=== PATIENT | female | born 1985 | race Caucasian/White ===

== ENCOUNTER 2022-08-24 08:02 | Outpatient (CLI) | payer OTHER, SELFPAY ==
--- NOTE | 2022-08-24 08:08 | US_ITS ---
STUDY: ULTRASOUND OF THE FEMALE PELVIS - COMPLETE REASON FOR EXAM: Female, 36 years old. PROLAPSE, -- AUB LMP: 08/16/2022. TECHNIQUE: Transabdominal and Transvaginal TECHNICAL QUALITY: Adequate. COMPARISON: None. FINDINGS: The uterus is retroverted and is in a midline position. The uterus measures 9 cm x 5.5 cm x 4.5 cm. There is a Nabothian cyst of the cervix. The endometrium measures 2.3 mm in thickness, and is hyperechoic. I suspect an 8 mm x 15 mm x 4 mm endometrial polyp. There is a 1.2 cm by 1.2 cm x 1.1 cm fibroid arising from the right side of the body of the uterus. I.U.D. - The patient does not have an I.U.D. The right ovary is visualized. The right ovary measures 3.4 cm x 2.2 cm x 2.1 cm. There is no right ovarian cyst or ovarian mass. There is no visualized right adnexal mass or complex lesion. There is normal arterial and normal venous vascularity. The left ovary is visualized. The left ovary measures 3 cm x 1.9 cm x 1.6 cm. There is no left ovarian cyst or ovarian mass. There is no visualized left adnexal mass or complex lesion. There is normal arterial and normal venous vascularity. There is no fluid in the cul-de-sac. The pre void volume of the bladder was 37 ml. US/Pelvic (Non ) IMPRESSION: Small uterine fibroid. Findings suggestive of a 1.5 cm x 0.8 cm x 0.4 cm endometrial polyp. Electronically Signed: Daniel Yanes MD at 14:54 EST ,
== END 2022-08-24 23:59 | disposition home or self-care (01) ==
PROVIDERS: PCP Family Medicine; Referring Provider Obstetrics & Gynecology; Visit Provider Obstetrics & Gynecology
DX: N93.9 Abnormal uterine and vaginal bleeding, unspecified (principal); N81.2 Incomplete uterovaginal prolapse; D21.9 Benign neoplasm of connective and other soft tissue, unspecified
CPT/HCPCS: 76830; 76856

== ENCOUNTER 2023-02-16 11:14 | Outpatient (CLI) | payer OTHER, SELFPAY ==
[2023-02-16 11:37] VITALS: BP 151/84; PULSE 91; RESP 16; TEMP 35.9; O2SAT 99; BMI 43.7
[2023-02-16] MEDS: 0.9% NaCl IVPB Med Flush (250 mL) 15 ML IV (11:45)
[2023-02-16] MEDS: 0.9% NaCl Peripheral Flush Adult/Peds IV (11:45)
[2023-02-16 13:35] VITALS: BP 132/70; PULSE 82; RESP 16
== END 2023-02-16 11:15 | disposition home or self-care (01) ==
PROVIDERS: PCP Family Medicine; Referring Provider Obstetrics & Gynecology; Visit Provider Obstetrics & Gynecology
DX: D64.9 Anemia, unspecified (principal)
CPT/HCPCS: 96365; 96366; J1756; J7050; A4216

== ENCOUNTER 2023-02-22 12:46 | Outpatient (CLI) | payer OTHER, SELFPAY ==
[2023-02-22 13:13] VITALS: BP 124/81; PULSE 84; RESP 19; TEMP 36.5; O2SAT 99; BMI 43.4
[2023-02-22] MEDS: 0.9% NaCl IVPB Med Flush (250 mL) 15 ML IV (13:28)
[2023-02-22] MEDS: 0.9% NaCl Peripheral Flush Adult/Peds IV (13:33)
[2023-02-22 15:26] VITALS: BP 134/69; PULSE 76; RESP 16; TEMP 36.8; O2SAT 100
== END 2023-02-22 12:47 | disposition home or self-care (01) ==
LOC: MEDOUTP 12:46
PROVIDERS: PCP Family Medicine; Referring Provider Obstetrics & Gynecology; Visit Provider Obstetrics & Gynecology
DX: D64.9 Anemia, unspecified (principal)
CPT/HCPCS: 96365; 96366; J1756; J7050; A4216

== ENCOUNTER 2023-03-05 13:27 | Outpatient (CLI) | payer OTHER, SELFPAY ==
[2023-03-05 13:36] VITALS: BP 143/77; PULSE 78; RESP 16; TEMP 35.7; O2SAT 98; BMI 43.4
[2023-03-05] MEDS: 0.9% NaCl IVPB Med Flush (250 mL) 15 ML IV (13:48)
[2023-03-05] MEDS: 0.9% NaCl Peripheral Flush Adult/Peds IV (13:48)
[2023-03-05 15:44] VITALS: BP 127/58; PULSE 73; RESP 16; TEMP 36.5; O2SAT 100
== END 2023-03-05 13:28 | disposition home or self-care (01) ==
LOC: MEDOUTP 13:28
PROVIDERS: PCP Family Medicine; Referring Provider Obstetrics & Gynecology; Visit Provider Obstetrics & Gynecology
DX: D64.9 Anemia, unspecified (principal)
CPT/HCPCS: 96365; 96366; J1756; J7050; A4216

== ENCOUNTER → 2023-05-11 | Outpatient (CLI) | payer OTHER, SELFPAY ==
--- NOTE | 2023-05-11 15:30 | EMB_PTH ---
PATIENT: JESS UMANA LOC: [facility] U#:[id number] AGE/SX: 37/F ROOM: RE05/11/[address]: Dr. Rosa Hightower MD : 1985 BED: DIS: 05/11/2023 SPEC #: [id number] RECD: 05/11/23 17:18 STATUS: CINDY HUDSON #: [id number] YENNY: 05/11/23 15:[address]: Rosa Hightower DEPT: SURGICAL PATHOLOGY RECD BY: Rula Quintana ENTERED: 05/14/23 07:49 SP TYPE: ENDOM BX/C YUDI DR: Dr. Giovanni Lundberg MD Tissues: Endometrium, NOS Procedures: Surgery Specimen Level IV HEADER OPERATION: Endometrial biopsy PRE-OP DIAGNOSIS: Abnormal uterine bleeding TISSUE SUBMITTED: Endometrial lining MICROSCOPIC DIAGNOSIS Endometrium, biopsy: Weakly proliferative endometrium with minimal disorder. Rare fragment of benign endocervix. AM:tricia 05/15/2023 MICROSCOPIC DESCRIPTION Slides are reviewed. GROSS DESCRIPTION Received is one container labeled with the patient's name and not further designated. The specimen consists of multiple irregular fragments of light estrada soft tissue that in aggregate measure 0.6 x 0.2 x 0.1 cm. The specimen is totally submitted in one cassette. / AM:tricia 05/14/2023 TC:5 CPT: 07301
== END | disposition home or self-care (01) ==
LOC: LABSPEC 05-14 07:35
PROVIDERS: PCP Family Medicine; Visit Provider Obstetrics & Gynecology
DX: N93.9 Abnormal uterine and vaginal bleeding, unspecified (principal)
CPT/HCPCS: 88305

== ENCOUNTER 2023-05-18 07:45 | Observation (INO) | payer OTHER, SELFPAY ==
[2023-05-11 13:39] LABS: Absolute Lymphocyte Count 4.24 X10^3/uL (0.83-4.51); Absolute Neutrophil Count 6.4 X10^3/uL (2.0-7.7); Basophil# 0.16 X10^3/uL; Basophil% 1.3 % (0-1); Eosinophil# 0.23 X10^3/uL; Eosinophils% 1.9 % (0-5); Hematocrit 37.4 % (37-47); Hemoglobin 11.8 g/dL (12.0-15.0); Lymphocyte # 4.24 X10^3/ul (0.83-4.51); Lymphocyte % 35.7 % (19-41); Mean Corp Hgb Conc 31.6 g/dL (32-36); Mean Corpuscular Hgb 25.3 pg (27.0-32.0); Mean Corpuscular Volume 80.3 fL (81-99); Mean Platelet Vol. 10.2 fl (6.2-12.0); Monocyte# 0.83 X10^3/uL; NRBC Flagged by Analyzer 0 % (0-5); Neutrophil # 6.39 X10^3/uL (2.7-7.7); Neutrophil % 53.8 % (47-70); POSITIVE MORPHOLOGY YES; Platelet Count 506 K/mm3 (150-450); RBC Distribution Width SD 55.2 fl (35.1-43.9); Red Blood Count 4.66 M/mm3 (4.2-5.4); White Blood Count 11.9 K/mm3 (4.4-11.0)
[2023-05-11 13:41] LABS: Differential Indicated SCAN CRITERIA MET
[2023-05-11 14:04] LABS: Magnesium 2.2 mg/dL (1.6-2.6)
[2023-05-11 14:15] LABS: Differential Comment SCANNED; Reactive Lymphocyte 1+
[2023-05-18] VITALS (15 sets, daily range): BP systolic 103–146; BP diastolic 63–93; PULSE 83–103; RESP 10–18; TEMP 36.5–37.2; O2SAT 88–100; BMI 42.7
[2023-05-18 06:04] LABS: Internal QC Validated? YES +Cl - CLEAR BKGD; Pregnancy, Urine Negative Negative
[2023-05-18] MEDS: Lactated Ringers 1,000 ML 40 ML IV (06:10)
[2023-05-18] MEDS: dexAMETHasone 4 MG/ML Vial 8 MG IV (06:11)
[2023-05-18] MEDS: Magnesium 1 GM over 15 mins IV (06:11)
--- NOTE | 2023-05-18 06:23 | PCM.HP.BLA ---
History and Physical Date of Admission: 05/18/23 [facility] Department [address] [place] [address] OFFICE VISIT Date of Service: 05/11/23 MR#: [id number] Acct: [id number] Name: JESS UMANA Rep #: [id number] : 1985 Provider: Dr. Rosa Hightower MD Age/Sex: 37/F [place] [facility] [place]: Signed Intake Vital Signs 08/10/2210:55 03/05/2313:36 05/11/2314:44 Height 5 ft 5 in 5 ft 4 in 5 ft 4 in Weight: 253 lb BMI 43.4 BP 133/87 H Blood Pressure Location Lt brachial Position Sitting Intake Visit Reasons: wyneski combo TVHBS Chief Complaint: Preop Cigar Brander Required: No Accompanied by: Self Is patient in pain?: No Allergies grape flavor Allergy (Verified 05/11/23 14:49) Hives Medications citalopram 20 mg tablet 40 mg PO DAILY 09/14/19 [History Confirmed 05/11/23] omeprazole 40 mg capsule,delayed release 40 mg PO DAILY 09/14/19 [History Confirmed 05/11/23] acetaminophen 325 mg tablet (Aphen) 650 mg PO Q4H PRN pain 05/04/23 [History Confirmed 05/11/23] ibuprofen 200 mg tablet (Advil) 400 mg PO Q8H 05/04/23 [History Confirmed 05/11/23] medroxyprogesterone 10 mg tablet 10 mg PO DAILY 05/04/23 [History Confirmed 05/11/23] nystatin 100,000 unit/gram topical powder (Nystop) 1 applic topical BID #45 ea 05/11/23 [Rx Confirmed 05/11/23] [facility] Medical History (Updated 05/13/23 @ 19:[address] Rosa Hightower MD) Alcohol use Anemia Antibiotic-induced yeast infection Anxiety Anxiety and depression Blood clot in vein Cardiology follow-up encounter Contact with and (suspected) exposure to other viral communicable diseases Cystocele Depression Dietary restriction Gastric reflux Heart palpitations History of echocardiogram History of edema History of hiatal hernia History of IBS History of stress test Menorrhagia Migraine headache Non-smoker Severe headache Shortness of breath on exertion Wears glasses Surgical History H/O splenectomy History of tonsillectomy Hx of appendectomy Family History Grandmother Breast cancer Bladder cancer Brain cancer Thyroid cancerOther Cancer Hypertension Lung cancer Social History Smoking Status: Never smoker alcohol intake: current details: social substance use type: does not use seatbelt use: always do you feel safe at home: Yes 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 she has a 9 cm uterus. Female Reproductive History Menopausal Symptoms: No hot flashes, No night sweats, No difficulty concentrating and No change in libido History 2 Elective abortions Hx Para 2 Spontaneous abortions Hx # Term Pregnancies Ectopic pregnancies Hx # Pregnancies Multiple births # of living children Past Pregnancies Del. Date Name GA/Weeks Outcome Route Bth Weight Infant Gen Labor Lgth Anesthesia Del Locatn Provider FOB Unknown 2011 Kathie 20 still Unknown 2012 Mann 38 live - full term Delivery Date: Last Updated by: Lisa Dickinson stillbirth at 20w3d, cervical insufficency ROS Const Constitutional: Denies fatigue, night sweats, weight gain or weight loss ENT ENT: Reports system reviewed and no additional complaints, except as documented Cardio Card: Denies chest pain Resp Resp: Denies cough or dyspnea GI GI: Reports as per HPI; Denies constipation, nausea or vomiting : Reports as per HPI; Denies hot flashes, nipple discharge, vaginal discharge, vaginal dryness, vaginal odor or vaginal pruritus Musc Musc: Reports arthralgias; Denies back pain or muscle weakness Skin Skin/Breast: Reports breast pain and breast skin changes; Denies alopecia, change in hair, dry skin, breast mass or nipple discharge Neuro Neuro: Reports system reviewed and no additional complaints, except as documented Psych Psych: Reports system reviewed and no additional complaints, except as documented; Denies change in libido or difficulty concentrating Endo Endo: Denies cold intolerance, excessive sweating, heat intolerance or polydipsia Erick/Lymph Hematologic/Lymphatic: Denies easy bleeding, Denies easy bruising and Denies lymphadenopathy Exam Const General: cooperative, healthy appearing, comfortable, no acute distress and well developed Orientation: alert [facility] Head: normal to inspection and normocephalic Ears: hearing grossly normal bilaterally and external ears normal Nose: external nose normal and nares normal Face and sinus: normal facial exam Neck Neck: normal visual inspection and no lymphadenopathy Thyroid: thyroid normal Chest Chest palpation & inspection: normal inspection of the chest Resp Effort & Inspection: normal respiratory effort Auscultation: clear to auscultation bilaterally Cardio Rate: regular rate Rhythm: regular rhythm Heart Sounds: S1 normal and S2 normal GI Inspection: normal to inspection and non-distended Palpation: soft and no hepatosplenomegaly General: bladder normal to palpation External Female Exam: normal external appearance and normal appearance of the urethra Urethra: normal appearance of the urethra, normal palpation and no discharge Speculum Exam - Vagina: normal appearance of the vagina and normal vaginal discharge Speculum Exam - Cervix: normal appearance of the cervix and nontender Bimanual Exam- Vagina & Uterus: normal bimanual exam, uterine size normal, bladder normal to palpation, uterine shape normal, No tender, uterine mobility normal, consistency normal, normal palpation and non-tender Bimanual Exam- Adnexa, other: normal adnexae, adnexae mobile, no masses, rectocele, cystocele and vaginal apex descent (grade II-III cervical descent) Pelvic Support: cystocele mild (grade II), rectocele mild (grade II) and vaginal apex descent (grade II-III cervical descent) Musc Other: gross motor intact no deficits, full bilateral strength Skin General: no rashes or lesions noted Neuro General: patient alert, patient awake, moves all extremities and no focal motor deficits Motor: muscle tone normal throughout Extrem General: normal to inspection and no pedal edema Psych Appearance: grossly normal Mental Status: mental status grossly normal Affect: normal affect Speech and Movement: speech and movement normal Office Procedures Endometrial Biopsy Endometrial Biopsy Test: Yes Negative Consent Signed: Yes Time out checklist: patient, procedure, site marked/identified, positioning of patient, supplies available, allergies confirmed and team agrees on procedure tenaculum used: No dilator used: No Details: Cervix prepped with betadine and pipelle inserted into uterus without complication. Specimen obtained and sent to lab for analysis. All instruments removed from vagina without complications. Excellent hemostasis noted. Coding Level of Care Code No Charge Diagnoses Blood clot in vein I82.90 Abnormal uterine bleeding N93.9 Incomplete uterovaginal prolapse N81.2 CPT Codes Endometrial Biopsy (02882) Assessment and Plan Assessment and Plan (1) Blood clot in vein: Status: Acute Comment: will give 1 week postop lovenox. superficial- left arm- blood transfusion in 2016 unresolved blood clot. 2021 blood clot in same arm, changed to progesterone only OCP (2) Abnormal uterine bleeding: Status: Acute Comment: limited options due to comorbidities, failed progestin. plan TVHBS possible laparoscopic. (3) Incomplete uterovaginal prolapse: Status: Acute Comment: urogyn combo case Orders: Orders Endometrial Biopsy 05/11/23 N93.9 - Abnormal uterine and vaginal bleeding, unspecified Medications: New nystatin (Nystop) 1 applic topical BID 45 ea 7RF Plan After discussing the patient's diagnosis and treatment plan options, patient wishes to proceed with surgical management. I have discussed with the patient the risks, benefits, and alternatives of the procedure which include but are not limited to risks of anesthesia, bleeding, infection, possible damage to bowel, bladder, or surrounding vasculature which could lead to additional surgery to evaluate any complications. Patient agrees to procedure and wishes to proceed. ACOG/uptodate references given for additional information regarding procedure. UPDATE- I have seen the patient and performed any clinically relevant updates to the history and physical exam. Rosa Hightower MD
[2023-05-18] MEDS: Gabapentin 600 MG Tablet PO (06:38)
[2023-05-18] MEDS: Celecoxib 200 MG Capsule 400 MG PO (06:39)
[2023-05-18] MEDS: Acetaminophen 500 MG Tablet 1000 MG PO ×3 (06:39→20:49)
[2023-05-18] MEDS: Enoxaparin 40 MG/0.4 ML Syringe SC (06:40)
[2023-05-18] MEDS: Scopolamine 1mg/72hr Patch 1 PATCH TD (06:40)
[2023-05-18 07:05] LABS: Bedside Glucose 82 mg/dL (74-106)
--- NOTE | 2023-05-18 07:30 | HYST_PTH ---
PATIENT: JESS UMANA LOC: [facility] U#:[id number] AGE/SX: 37/F ROOM: WI316 RE05/18/[address]: Dr. Rosa Hightower MD : 1985 BED: 1 DIS: 05/19/2023 SPEC #: [id number] RECD: 05/18/23 11:54 STATUS: CINDY HUDSON #: [id number] YENNY: 05/18/23 07:[address]: Rosa Hightower DEPT: SURGICAL PATHOLOGY RECD BY: Rula Quintana ENTERED: 05/18/23 13:05 SP TYPE: HYSTERECT OTHR DR: MD Dr. Karina Hennessy MD Tissues: Uterus, NOS Procedures: Surgery Specimen Level V HEADER OPERATION: ERAS, total vaginal hysterectomy PRE-OP DIAGNOSIS: Incomplete uterovaginal prolapse, mixed incontinence, nocturia, overactive bladder TISSUE SUBMITTED: Uterus and cervix MICROSCOPIC DIAGNOSIS Uterus and cervix, vaginal hysterectomy: Cervix - chronic cystic cervicitis and squamous metaplasia. Endometrium - inactive to weakly proliferative endometrium. Myometrium - two subserosal leiomyomas (each measuring 0.2 cm in greatest dimension). PEÑA:tricia 05/21/2023 MICROSCOPIC DESCRIPTION Slides are reviewed. GROSS DESCRIPTION Received in fixative is one container labeled with the patient's name and designated uterus and cervix. The specimen consists of a hysterectomy specimen consisting of uterus with cervix weighing 109 gm and measuring 11.0 x 6.0 x 5.0 cm. The serosal surface is estrada, glistening. The external os is oval and patulous in contour. The external os is covered with mucoid material. The ectocervical mucosa is unremarkable. The endocervical canal measures 4.0 cm in length and the endocervical mucosa is unremarkable. The triangular endometrial cavity measures 5.0 cm in length and up to 2.5 cm in width and is estrada, glistening without any mass lesion and measures 0.2 cm in thickness. Sectioning of the uterine wall reveal two subserosal nodules each measuring 0.2 cm in greatest dimension. The uterine wall measures up to 2.5 cm in thickness. Community Relations Representative sections are submitted in seven cassettes as follows: 1 - anterior cervix, 2 - posterior cervix, 3 & 4 - anterior uterine wall, 5 & 6 - posterior uterine wall, 7 - two subserosal nodules. / PEÑA:tricia 05/18/2023 TC: 2 CPT: 96407
--- NOTE | 2023-05-18 07:36 | OP.PCM_ITS ---
Problems Associated Problem List Diagnoses (1) Abnormal uterine bleeding: (2) Incomplete uterovaginal prolapse: (3) S/P vaginal hysterectomy: Report of Operation Date of Procedure: 05/18/23 Pre-Operative Diagnosis: see A/P Post-Operative Diagnosis: same Surgery/Procedure Performed:: TVH Surgeon: Rosa Hightower motor and controls tester: Martin Muniz Type of Anesthesia: General Specimen's removed: uterus Drains: lott Fluids Replaced: crystalloid Description of Procedure: Patient was taken to the operating room and was placed under general anesthesia was prepped and draped in normal sterile fashion in the dorsal lithotomy position. Preoperative antibiotics and SCDs and Lott catheter was placed inside the bladder. Weighted speculum was placed in the vagina and the anterior and posterior lip of the cervix was grasped with 2 Nicole clamps and ci rcumferentially injected with dilute vasopressin. A circumferential incision was made with a scalpel and the posterior cul-de-sac was entered into sharply and a longneck speculum was placed. The anterior cul-de-sac was also dissected down and entered into sharply and the uterosacral ligaments were clamped cut and suture ligated bilaterally followed by the cardinal ligaments which were Clamped cut and suture ligated bilaterally with 0 Monocryl. The uterus serially descended and progressive bites were taken bilaterally up to the level of the utero-ovarian ligament bilaterally which was clamped transected and double ligated with 0 Monocryl suture and 0 Vicryl free tie. Bilateral fallopian tubes and ovaries were well visualized and noted be within normal limits but unable to be removed safely due to limited operative reach and availability. Posterior peritoneum was reapproximated with 2-0 Vicryl. Excellent hemostasis was noted. The vagina was closed with [id number] 0 Vicryl pop offs including the posterior and anterior peritoneum in the reapproximation. Excellent hemostasis was noted. All instruments removed from the vagina clear urine was noted at the end of the procedure and Dr beckett then began her portion. Grafts/Implants Used: none Complications none Admit VTE Documentation VTE Present on Admission: No VTE Mechan Device Prophylaxis: SCD's VTE Pharm Prophylaxis ordered?: Yes Multi Select Codes Urinary/Genital Urinary/Genital CPT Codes: 22917 TVH+BS/O <250gr uterus
[2023-05-18] MEDS: Cefazolin 2 GM in 0.9% Normal Saline 100 ML IV (07:37)
--- NOTE | 2023-05-18 07:37 | DCINST_ITS ---
Discharge Instructions Diet Discharge Diet: No restrictions Activity Discharge Activity: Return to Normal Activity, May Not Drive (while taking narcotic pain medications.) and May Shower May resume sexual activity in: 6-8 weeks Dressing / Incision Call your doctor if your incision/area has: Continuous Slow Oozing, Sudden Increased Bleeding, Increased Pain/ Swelling, Increased Redness and Foul Smelling Discharge Call your doctor if you observe: Fever of 101 or Higher, Inability to urinate, Inability to have a bowel movement and Using more than 1 pad per hour Follow Up Care Please Follow Up With: Rosa Hightower MD Test Results: Test results from this visit will be discussed in further detail at your follow- up appointment, if applicable. Discharge Plan Admission Attending Provider: Rosa Hightower Primary Care Provider: Giovanni Lundberg Consulting Providers: Karina Goddard Discharge Orders/Prescriptions Prescriptions: New oxycodone-acetaminophen [Percocet] 5-325 mg tablet 1 tab PO Q6H PRN (Reason: pain) 7 Days Qty: 20 0RF naproxen [naproxen] 500 mg tablet 500 mg PO BID PRN PRN (Reason: Pain) Qty: 30 1RF enoxaparin [Lovenox] 40 mg/0.4 mL syringe 40 mg SQ DAILY 7 Days Qty: 10 1RF Continued citalopram 20 mg tablet 40 mg PO DAILY Patient Comments: take 1 tablet by mouth once daily omeprazole 40 mg capsule,delayed release(DR/EC) 40 mg PO DAILY nystatin [Nystop] 100,000 unit/gram powder 1 applic topical BID Qty: 45 7RF acetaminophen [Aphen] 325 mg tablet 650 mg PO Q4H PRN (Reason: pain) ibuprofen [Advil] 200 mg tablet 400 mg PO Q8H No Action medroxyprogesterone 10 mg tablet 10 mg PO DAILY Rx Instructions: take three times daily until bleeding stops for two days then twice daily for three days then once daily Referrals / Follow Up: Giovanni Lundberg MD [Primary Care Provider] - Disposition Disposition (needs filled in before D/C Order can be placed): Home, Self Care
[2023-05-18] MEDS: Vasopressin 20 UNITS/ML Vial (08:00)
--- NOTE | 2023-05-18 11:27 | DCINST_ITS ---
Discharge Instructions Diet Discharge Diet: No restrictions Activity Discharge Activity: May Not Drive (for 2 weeks) and May Shower May resume sexual activity in: 8 weeks Lifting Restrictions: 5 pounds for 8 weeks Additional Activity Instructions:: No strenuous activity, exercise, sexual activity, tub bathing, swimming or hot tubs Dressing / Incision Call your doctor if your incision/area has: Continuous Slow Oozing, Sudden Increased Bleeding, Increased Pain/ Swelling, Increased Redness and Foul Smelling Discharge Call your doctor if you observe: Fever of 101 or Higher, Inability to urinate, Inability to have a bowel movement and Using more than 1 pad per hour Follow Up Care Please Follow Up With: Rosa Hightower MD When: , the office will call patient to make arrangements Test Results: Test results from this visit will be discussed in further detail at your follow- up appointment, if applicable. Discharge Plan Admission Admit Date/Time: 05/18/23 07:45 Attending Provider: Rosa Hightower Primary Care Provider: Giovanni Lundberg Consulting Providers: Karina Goddard Discharge Orders/Prescriptions Prescriptions: New oxycodone-acetaminophen [Percocet] 5-325 mg tablet 1 tab PO Q6H PRN (Reason: pain) 7 Days Qty: 20 0RF naproxen [naproxen] 500 mg tablet 500 mg PO BID PRN PRN (Reason: Pain) Qty: 30 1RF enoxaparin [Lovenox] 40 mg/0.4 mL syringe 40 mg SQ DAILY 7 Days Qty: 10 1RF cephalexin [cephalexin] 500 mg capsule 500 mg PO Q12 3 Days Qty: 6 0RF Continued citalopram 20 mg tablet 40 mg PO DAILY Patient Comments: take 1 tablet by mouth once daily omeprazole 40 mg capsule,delayed release(DR/EC) 40 mg PO DAILY nystatin [Nystop] 100,000 unit/gram powder 1 applic topical BID Qty: 45 7RF acetaminophen [Aphen] 325 mg tablet 650 mg PO Q4H PRN (Reason: pain) ibuprofen [Advil] 200 mg tablet 400 mg PO Q8H No Action medroxyprogesterone 10 mg tablet 10 mg PO DAILY Rx Instructions: take three times daily until bleeding stops for two days then twice daily for three days then once daily Referrals / Follow Up: Giovanni Lundberg MD [Primary Care Provider] - Disposition Disposition (needs filled in before D/C Order can be placed): Home, Self Care
--- NOTE | 2023-05-18 11:29 | OP.PCM_ITS ---
Report of Operation Date of Procedure: 05/18/23 Pre-Operative Diagnosis: Incomplete uterovaginal prolapse Post-Operative Diagnosis: Same Surgery/Procedure Performed:: Posterior repair with bilateral sacrospinous ligament fixation with dermis, cystoscopy with bilateral ureteral c atheterization Surgeon: Karina Goddard Type of Anesthesia: General Estimated Blood Loss (mL): 50 cc Grafts/Implants Used: Dermis Complications None Admit VTE Documentation VTE Present on Admission: Yes VTE Mechan Device Prophylaxis: SCD's VTE Pharm Prophylaxis ordered?: Yes
--- NOTE | 2023-05-18 11:29 | PCM.OPRPT ---
Report of Operation Date of Procedure: 05/18/23 Pre-Operative Diagnosis: Incomplete uterovaginal prolapse Post-Operative Diagnosis: Same Surgery/Procedure Performed:: Posterior repair with bilateral sacrospinous ligament fixation with dermis, cystoscopy with bilateral ureteral catheterization Surgeon: Karina Goddard Type of Anesthesia: General Estimated Blood Loss (mL): 50 cc Description of Procedure: The patient is a 37-year-old female with incomplete uterovaginal prolapse who presents for a hysterectomy and possible prolapse repair. Informed consent has been obtained. She was taken to the operating room and placed on the operating room table. Anesthesia monitored the head, neck, airway, IV access and vital signs throughout the case. Once anesthesia was appropriately administered, the patient was placed into exaggerated dorsal lithotomy position and was prepped and draped in usual sterile fashion. A Harrison catheter was inserted under sterile technique. The patient then had a vaginal hysterectomy per Dr. Hightower. After closure of the cuff, the case was turned over to ut. The Harrison catheter was removed and the cystoscope was inserted under direct visualization into the urinary bladder. There is no evidence of bladder injury, hemorrhage or foreign body within the urinary bladder. The right ureteral orifice was intubated with a 5 Anguillan whistle-tip catheter that was easily advanced to 20 cm without evidence of obstruction or injury. On the patient's left side the ureteral orifice was very small and a Glidewire was easily advanced without evidence of obstruction or injury. The cystoscope was then removed and the Harrison catheter was reinserted. At this time it was obvious that she had essentially no posterior vaginal support and there is an enterocele identified along with apical laxity. The cystocele was identified as a stage I and the decision was made to leave this alone. This was previously discussed with the patient. The posterior wall was isolated and the submucosa was injected with vasopressin for hydrostatic dissection and hemostatic control. A midline incision was made and sharp and blunt dissection was performed bilaterally until the sacrospinous ligaments were identified and freed from surrounding tissues. Of note, almost no sharp dissection was performed as her tissues had no significant support and the tissue planes slid apart without trauma. The pelvis was very narrow at the introitus and widened at the sacrum. There was difficulty in the procedure secondary to her size and the shape of the pelvis. The Capio device was carefully used to place dissolvable sutures through the sacrospinous ligaments bilaterally and these were sent through the dermis which was also tacked in the midline using a 2-0 interrupted suture. The dermis was then tied into position bilaterally and the suture was brought through the vaginal apex on each side. The dermis was then secured around the perimeter using 2-0 Vicryl interrupted suture to the white line and just above the perineal body. The perineal body was reconstructed with interrupted sutures. Once everything was tied into position, the midline incision was closed with running interlocking 2-0 Vicryl. A cystourethroscopy was once again performed revealing easy cannulation of each ureter with the whistle-tip catheter on the right and the Glidewire on the left without evidence of injury or obstruction. At this time the cystoscope was removed and the Harrison catheter was replaced. The vagina was packed with plain packing. The patient was awakened and taken to the recovery room in good condition. There were no complications during this procedure. Grafts/Implants Used: Dermis Complications None Admit VTE Documentation VTE Present on Admission: Yes VTE Mechan Device Prophylaxis: SCD's VTE Pharm Prophylaxis ordered?: Yes
[2023-05-18] MEDS: Lidocaine 2% Jelly 1 APPLIC Tube TOPICAL (12:50)
[2023-05-18] MEDS: Ketorolac 30 MG/ML Syringe IV ×2 (14:39→20:49)
[2023-05-18] MEDS: oxyCODONE 5 MG Tablet PO ×3 (14:44→23:19)
[2023-05-18] MEDS: Phenazopyridine 95 MG Tablet 190 MG PO (14:45)
[2023-05-18] MEDS: Docusate Sodium 100 MG Capsule PO (20:49)
[2023-05-19] MEDS: Acetaminophen 500 MG Tablet 1000 MG PO ×2 (01:54→08:30)
[2023-05-19] MEDS: Ketorolac 30 MG/ML Syringe IV ×2 (01:54→08:30)
[2023-05-19] MEDS: 0.9% Saline Lock 10 ML Syringe IV (01:55)
[2023-05-19] MEDS: Pantoprazole Sodium 40 MG Tablet PO ×2 (01:55→08:31)
[2023-05-19 02:06] VITALS: BP 100/51; PULSE 93; RESP 16; TEMP 36.3; O2SAT 94
[2023-05-19] MEDS: oxyCODONE 5 MG Tablet PO (06:53)
[2023-05-19 06:57] VITALS: BP 127/65; PULSE 76; RESP 16; TEMP 36.6; O2SAT 98
[2023-05-19 07:47] LABS: Hematocrit 33.5 % (37-47); Hemoglobin 10.4 g/dL (12.0-15.0); Mean Corpuscular Hgb 25.3 pg (27.0-32.0); Mean Corpuscular Volume 81.5 fL (81-99); Mean Platelet Vol. 10.7 fl (6.2-12.0); Platelet Count 479 K/mm3 (150-450); RBC Distribution Width SD 56.1 fl (35.1-43.9); Red Blood Count 4.11 M/mm3 (4.2-5.4); White Blood Count 13.9 K/mm3 (4.4-11.0)
--- NOTE | 2023-05-19 08:27 | PCM.PN.GU ---
Subjective Subjective Feeling sore, but no issues overnight. Objective Data Objective Data Vital Signs: Vital Signs Temp Pulse Resp BP Pulse Ox O2 Del Method O2 Flow Rate 98 F 76 16 127/65 H 98 Room Air 2 05/19/23 06:57 05/19/23 06:57 05/19/23 06:57 05/19/23 06:57 05/19/23 06:57 05/19/23 06:57 05/18/23 15:20 FiO2 48 05/18/23 11:30 Oxygen Flow Rate (L/min) 2 Oxygen Delivery Method Room Air Weight: 113 kg Body Mass Index (BMI) 42.7 Intake & Output: Intake and Output for Last 24 Hours 05/17/23 05/18/23 05/19/23 23:59 23:59 23:59 Intake Total 863.33 / 863.33 Output Total 1900 / 2650 1550 / 1550 Balance -1036.67 / -1786.67 -1550 / -1550 Lab / Micro Data 05/19/23 06:45 Labs: Laboratory Results - last 24 hr 05/19/23 06:45: WBC 13.9 H, RBC 4.11 L, Hgb 10.4 L, Hct 33.5 L, MCV 81.5, MCH 25.3 L, MCHC 31.0 L, RDW Std Deviation 56.1 H, RDW Coeff of Fanny 19.0 H, Plt Count 479 H, MPV 10.7 Physical Exam Narrative abdomen soft, non-tender, non-distended SCD's in place moving all extremities Lott draining pyridium stained urine, removed without incident vaginal packing removed without incident Const alert, oriented x3 and no apparent distress Assessment & Plan Assessment/Plan (1) S/P vaginal hysterectomy: (2) Abnormal uterine bleeding: (3) Incomplete uterovaginal prolapse: PLAN: Plan trial of void home later today we discussed follow up plan, Sunday if she goes home with lott (she will remove lott Sunday) or in the office in 2 weeks if home without lott catheter
[2023-05-19] MEDS: Citalopram 20 MG Tablet 40 MG PO (08:31)
[2023-05-19] MEDS: Enoxaparin 40 MG/0.4 ML Syringe SC (08:32)
[2023-05-19] MEDS: Ensure Plus High Protein 120 ML LIQUID PO (09:17)
[2023-05-19] MEDS: Docusate Sodium 100 MG Capsule PO (09:17)
[2023-05-19 09:40] VITALS: O2SAT 94
--- NOTE | 2023-05-19 10:27 | PN.OBGYN_ITS ---
Subjective Subjective patient recovering well, denies CP, SOB, N, or V. patient is ambulating, voiding ,tolerating adequate po, and pain is controlled with oral medications. Objective Data Objective Data Vital Signs: Vital Signs Temp Pulse Resp BP Pulse Ox O2 Del Method O2 Flow Rate 98 F 76 16 127/65 H 94 Room Air 2 05/19/23 06:57 05/19/23 06:57 05/19/23 06:57 05/19/23 06:57 05/19/23 09:40 05/19/23 09:40 05/18/23 15:20 FiO2 48 05/18/23 11:30 Oxygen Flow Rate (L/min) 2 Oxygen Delivery Method Room Air Weight: 249 lb 1.957 oz Body Mass Index (BMI) 42.7 Intake & Output: Intake and Output for Last 24 Hours 05/17/23 05/18/23 05/19/23 23:59 23:59 23:59 Intake Total 863.33 / 863.33 Output Total 1900 / 2650 1550 / 1550 Balance -1036.67 / -1786.67 -1550 / -1550 Lab / Micro Data Attestation: I reviewed the patient's lab results. 05/19/23 06:45 Labs: Laboratory Results - last 24 hr 05/19/23 06:45: WBC 13.9 H, RBC 4.11 L, Hgb 10.4 L, Hct 33.5 L, MCV 81.5, MCH 25.3 L, MCHC 31.0 L, RDW Std Deviation 56.1 H, RDW Coeff of Fanny 19.0 H, Plt Count 479 H, MPV 10.7 ROS Constitutional Constitutional: Reports systems reviewed and no addt'l complaints, except as documented Cardiovascular Cardiovascular: Reports systems reviewed and no addt'l complaints, except as d ocumented Respiratory/Chest Respiratory/Chest: Reports systems reviewed and no addt'l complaints, except as documented Gastrointestinal Gastrointestinal: Reports systems reviewed and no addt'l complaints, except as documented Genitourinary Genitourinary: Reports systems reviewed and no addt'l complaints, except as documented Neurologic Neurologic: Reports systems reviewed and no addt'l complaints, except as documented Psychiatric Psychiatric: Reports systems reviewed and no addt'l complaints, except as documented Physical Exam Const alert and oriented x3 General Appearance: cooperative and comfortable Resp normal respiratory effort, no retractions and no use of accessory muscles GI soft to palpation and non-tender Extremity normal to inspection Skin no rashes or lesions noted Neuro moves all extremities Assessment & Plan (1) S/P vaginal hysterectomy: COMMENT: TVHBS SM combo case sophy PLAN: patient is s/p 1 POD 1 1. routine ERAS protocol postop care- increase ambulation, encourage oral intake and oral control of pain. lovenox and scds for dvt prophylaxis, patient stable for discharge to home. (2) Blood clot in vein: COMMENT: will give 1 week postop lovenox. superficial- left arm- blood transfusion in 2016 unresolved blood clot. 2021 blood clot in same arm, changed to progesterone only OCP (3) Abnormal uterine bleeding: COMMENT: limited options due to comorbidities, failed progestin. plan TVHBS possible laparoscopic. (4) Incomplete uterovaginal prolapse: COMMENT: urogyn combo case (5) Contact with and (suspected) exposure to other viral communicable diseases: (6) URI (upper respiratory infection): Charges/Coding Multi Select Codes Urinary/Genital Urinary/Genital CPT Codes: No Charge
[2023-05-19 11:34] VITALS: BP 102/62; PULSE 87; RESP 16; TEMP 36.7; O2SAT 97
== END 2023-05-19 13:09 | disposition home or self-care (01) ==
LOC: SDC 14:31 → MS3 17:29
PROVIDERS: Anesthesiology; Urology; Admitting Provider Obstetrics & Gynecology; PCP Family Medicine; Referring Provider Obstetrics & Gynecology; Visit Provider Obstetrics & Gynecology
PROC: (CPT 58260; principal; 2023-05-18 07:10)
PROC: (CPT 57260; 2023-05-18 07:10)
DX: N81.2 Incomplete uterovaginal prolapse (principal); N93.9 Abnormal uterine and vaginal bleeding, unspecified; Z86.718 Personal history of other venous thrombosis and embolism; D25.2 Subserosal leiomyoma of uterus; K21.9 Gastro-esophageal reflux disease without esophagitis
CPT/HCPCS: 58262; 00944; 57250; 36415; 81025; 82962; 83735; 85025; 85027; 86850; 86900; 86901; 88307; 94668; 94762; 96372; 96374; 96376; 99221; 99252; J7120; A4216; C1758; G0378; G0463; J2405; J3475

== ENCOUNTER → 2023-06-05 | Outpatient (CLI) | payer OTHER, SELFPAY ==
[2023-06-05 14:48] LABS: Absolute Lymphocyte Count 3.92 X10^3/uL (0.83-4.51); Absolute Neutrophil Count 8.8 X10^3/uL (2.0-7.7); Basophil# 0.15 X10^3/uL; Eosinophil# 0.42 X10^3/uL; Eosinophils% 2.9 % (0-5); Hematocrit 38.2 % (37-47); Hemoglobin 12.3 g/dL (12.0-15.0); Lymphocyte # 3.92 X10^3/ul (0.83-4.51); Lymphocyte % 27.3 % (19-41); Mean Corp Hgb Conc 32.2 g/dL (32-36); Mean Corpuscular Hgb 26.4 pg (27.0-32.0); Mean Platelet Vol. 10.1 fl (6.2-12.0); Monocyte# 1.03 X10^3/uL; Monocyte% 7.2 % (0-10); NRBC Flagged by Analyzer 0 % (0-5); Neutrophil # 8.82 X10^3/uL (2.7-7.7); Neutrophil % 61.3 % (47-70); Platelet Count 600 K/mm3 (150-450); RBC Distribution Width CV 18.6 % (11.6-14.6); RBC Distribution Width SD 55.5 fl (35.1-43.9); Red Blood Count 4.66 M/mm3 (4.2-5.4); White Blood Count 14.4 K/mm3 (4.4-11.0)
== END | disposition home or self-care (01) ==
PROVIDERS: PCP Family Medicine; Referring Provider Obstetrics & Gynecology; Visit Provider Obstetrics & Gynecology
DX: Z90.710 Acquired absence of both cervix and uterus (principal)
CPT/HCPCS: 36415; 85025

== ENCOUNTER → 2023-11-27 | Outpatient (CLI) | payer OTHER, SELFPAY ==
--- NOTE | 2023-11-27 18:55 | CT_ITS ---
INDICATION: KIDNEY STONE EXAMINATION: CT Abdomen And Pelvis W/O Contrast Injection TECHNIQUE: Helically acquired images were obtained of the abdomen and pelvis without the use of IV contrast. A radiation dose optimization technique was used for this scan. Oral contrast: None. COMPARISON: None FINDINGS: Evaluation of the solid organs and vascular structures is limited without intravenous contrast. Visualized lung bases: Unremarkable Liver: Diffusely hypodense consistent with fatty liver. Gallbladder: Unremarkable Spleen: Unremarkable Pancreas: Unremarkable Adrenal Glands: Unremarkable Kidneys: 5 mm nonobstructing stone in the left mid renal pole. 6 mm nonobstructing stone in the left upper renal pole. Vasculature: Unremarkable GI Tract: Unremarkable Lymphadenopathy: None Peritoneum: No ascites. Bladder: Unremarkable Reproductive organs: Status post hysterectomy. Bones/Soft tissues: Mild scattered degenerative changes of the visualized spine. CT/Abdomen/Pelvis without Cont IMPRESSION: 5 and 6 mm nonobstructing stones in the left kidney. No obstructing stone or hydronephrosis. Fatty liver. Electronically Signed: Domingo Lechuga MD at 5:09 EST ,
== END | disposition home or self-care (01) ==
LOC: CT 18:52
PROVIDERS: PCP Family Medicine; Referring Provider Urology; Visit Provider Urology
DX: N20.0 Calculus of kidney (principal); N20.1 Calculus of ureter
CPT/HCPCS: 74176

== ENCOUNTER → 2025-06-26 | Outpatient (CLI) | payer OTHER, SELFPAY | END | disposition home or self-care (01) | LOC: MTLAB 16:52 | PROVIDERS: PCP Family Medicine; Referring Provider Physician Assistant; Visit Provider Physician Assistant | DX: L40.0 Psoriasis vulgaris (principal) | CPT/HCPCS: 36415; 86480 ==

== ENCOUNTER → 2025-07-24 | Outpatient (CLI) | payer OTHER, SELFPAY ==
[2025-07-28 12:09] LABS: QNTFERON TB Mitogen Value > 10.00 IU/mL (.); QNTFERON TB Nil Value 0.05 IU/mL (.); QNTFERON TB1+ Ag Value 0.09 IU/mL (.); QNTFERON TB2+ Ag Value 0.07 IU/mL (.); QNTIFERON TB Positive Criteria Negative (Negative)
== END | disposition home or self-care (01) ==
LOC: MTLAB 16:42
PROVIDERS: PCP Family Medicine; Referring Provider Physician Assistant; Visit Provider Physician Assistant
DX: L40.0 Psoriasis vulgaris (principal)
CPT/HCPCS: 86480

== ENCOUNTER 2025-09-03 11:17 | Emergency (ER) | payer OTHER, SELFPAY ==
[2025-09-03 11:18] VITALS: BP 173/102; PULSE 77; RESP 16; TEMP 37; O2SAT 100; BMI 48.3
[2025-09-03 11:54] VITALS: BP 152/94
--- NOTE | 2025-09-03 11:58 | ED.RN ---
Pt initially complained of headache when triaged, blood pressure was elevated. When pt brought back in to triage room for blood pressure check she stated she was also having chest pain. Pt stated she thought it was heartburn and didn't think it was relevant. Pt roomed and called for EKG.
--- NOTE | 2025-09-03 12:24 | EKG12_ITS ---
Test Reason : CP Blood Pressure : */* mmHG Vent. Rate : 73 BPM Atrial Rate : 73 BPM P-R Int : 170 ms QRS Dur : 76 ms QT Int : 380 ms P-R-T Axes : 59 76 59 degrees QTcB Int : 418 ms Normal sinus rhythm Normal ECG Confirmed by BEHZAD BAKER, DENNYS ([id number]), news copy editor JAIRO JAUREGUI ([id number]) on 09/07/2025 6:28:01 AM Referred By: TREVA/FAVIO Confirmed By: DENNYS WEN MD
[2025-09-03] MEDS: Ketorolac 30 MG/ML Syringe IV (12:47)
[2025-09-03] MEDS: 0.9% Normal Saline (1000mL) 1,000 ML 1000 ML IV (12:47)
[2025-09-03] MEDS: DiphenhydrAMINE 50 MG/ML Syringe 25 MG IV (12:47)
--- NOTE | 2025-09-03 12:55 | CT_ITS ---
PROCEDURE: BRAIN/HEAD WITHOUT CONTRAST 09/03/2025 REASON FOR EXAM: HEADACHE TECHNIQUE: Procedure Code: CTBR Modality: CT Procedure: BRAIN/HEAD WITHOUT CONTRAST Coronal and Sagittal reconstruction series were provided. One or more dose reduction techniques were used (e.g., Automated exposure control, adjustment of the mA and/or kV according to patient size, use of iterative reconstruction technique. RADIATION DOSE SUMMARY: CTDlvol: 47.06 mGy DLP: 837.39 mGycm COMPARISON: None FINDINGS: Brain: Normal CSF Spaces: Normal Sinuses/Mastoids: Clear at visualized levels Bones: Unremarkable CT/Brain/Head without Contrast IMPRESSION: NORMAL NONCONTRAST HEAD CT. Reading Location: [place] [id number]
--- NOTE | 2025-09-03 13:00 | RAD_ITS ---
EXAM: XR Chest, 1 View CLINICAL INDICATION: CHEST PAIN TECHNIQUE: Frontal view of the chest. COMPARISON: No relevant prior studies available. FINDINGS: LUNGS AND PLEURAL SPACES: Pulmonary venous congestion. No consolidation. No pneumothorax. HEART: Unremarkable. No cardiomegaly. MEDIASTINUM: Unremarkable. Normal mediastinal contour. BONES/JOINTS: Unremarkable. No acute fracture. RAD/Chest 1 View (Portable) IMPRESSION: Pulmonary venous congestion. Reading Location: [facility]
[2025-09-03 13:01] VITALS: PULSE 98; RESP 18; O2SAT 100
[2025-09-03 13:13] LABS: Hematocrit 38.0 % (37-47); Hemoglobin 12.3 g/dL (12.0-15.0); Immature Granulocytes Count 0.040 X10^3/uL (0.0-0.0); Mean Corp Hgb Conc 32.4 g/dL (32-36); Mean Corpuscular Volume 88.6 fL (81-99); Mean Platelet Vol. 10.6 fl (6.2-12.0); NRBC Flagged by Analyzer 0 % (0-5); Platelet Count 508 K/mm3 (150-450); RBC Distribution Width CV 14.9 % (11.6-14.6); RBC Distribution Width SD 48.3 fl (35.1-43.9); Red Blood Count 4.29 M/mm3 (4.2-5.4); White Blood Count 13.2 K/mm3 (4.4-11.0)
[2025-09-03 14:00] VITALS: BP 157/91; PULSE 78; RESP 18; O2SAT 99
[2025-09-03 14:13] LABS: Anion Gap 9 (5-15); BUN 13 mg/dL (4-19); BUN/Creat Ratio 24.7 RATIO (10-20); Calcium,Total 9.2 mg/dL (7.6-11.0); Carbon Dioxide 26.9 mmol/L (21.0-32.0); Chloride 100 mmol/L (98-108); Estimated Creatinine Clearance 186.90 ml/min (50-250); Glucose 77 mg/dL (70-99); Potassium 3.8 mmol/L (3.3-5.1)
[2025-09-03 14:26] LABS: Troponin T High Sensitivity < 6 ng/L (<=14)
[2025-09-03 14:48] LABS: Troponin T High Sens 2 HR < 6 ng/L (<=14)
[2025-09-03 15:00] VITALS: BP 137/90; PULSE 74; RESP 18; O2SAT 98
--- NOTE | 2025-09-03 15:06 | EDS_ITS ---
HPI History of Present Illness Chief Complaint: Chest Pain Informant: patient Narrative Narrative: 40-year-old female presenting to the emergency room chief complaint of headache. Patient states that she has been experiencing daily headaches for at least a month. She does have a history of migraine headaches typically is left retro- orbital. Most recently her headaches have been more generalized but also left orbital. Today she notes a more significant headache than normal described as all over. She notes that she was sick last week but other than some slight rhinorrhea has recovered from that. No current fevers no rashes no neck pain. While at work today she developed a pain in her central chest. She states it feels like a rock underneath her breastbone. She states her mom earlier this year unexpectedly from presumed myocardial infarction. She states that that is on her mind currently. She denies arm or leg symptoms. No speech difficulty. [facility] Medical History Wears glasses Depression Anxiety Alcohol use Migraine headache Dietary restriction History of hiatal hernia History of IBS Gastric reflux Non-smoker Shortness of breath on exertion History of edema Cardiology follow-up encounter History of echocardiogram History of stress test Heart palpitations Contact with and (suspected) exposure to other viral communicable diseases Abnormal uterine bleeding Incomplete uterovaginal prolapse Blood clot in vein Menorrhagia Cystocele Anxiety and depression Antibiotic-induced yeast infection Severe headache Anemia Home Medications ?Medication ?Instructions ?Recorded ?Last Taken ?Type citalopram 20 mg tablet 40 mg PO DAILY 09/14/1904/25 History omeprazole 40 mg capsule,delayed 40 mg PO DAILY 05/17/23 History release methylprednisolone 4 mg tablets in See Rx Instructions PO PER PKG DIR 08/24/25 Unknown Rx a dose pack (Medrol (Michael)) #21 tabs risankizumab-rzaa 150 mg/mL mg subcut 08/24/25 Unknown History subcutaneous pen injector (Skyrizi) Allergy/AdvReac Type Severity Reaction Status Date / Time grape flavor Allergy Hives Verified 09/03/25 11:19 Family History Grandmother Breast cancer Bladder cancer Brain cancer Thyroid cancer Other Cancer Hypertension Lung cancer Surgical History S/P vaginal hysterectomy History of tonsillectomy Hx of appendectomy H/O splenectomy Social History Smoking Status: Never smoker alcohol intake: current details: social substance use type: does not use seatbelt use: always do you feel safe at home: Yes additional social history: [employer] Patient currently unemployed ROS ROS ED Constitutional Constitutional ED: Denies chills, fever(s) or weight loss Eyes Eyes: Denies change in vision or diplopia ENT ENT ED: Denies ear pain, rhinorrhea or sore throat Cardiovascular Cardiovascular: Reports as per HPI and chest pain; Denies orthopnea, palpitations or racing heartbeat Respiratory/Chest Respiratory/Chest: Denies cough, dyspnea or orthopnea Gastrointestinal Gastrointestinal: Denies abdominal pain, diarrhea, nausea or vomiting Genitourinary Genitourinary ED: Denies dysuria, hematuria or urinary frequency Musculoskeletal Musculoskeletal: Denies arthralgias or myalgias Integumentary Denies abscess or rash Neurologic Neurologic: Reports headache(s); Denies paresthesias or weakness Psychiatric Psychiatric: Denies anxiety, depression, suicidal ideation or suicidal thoughts Endocrine Endocrinology: Denies polydipsia, polyphagia or polyuria Allergic/Immunologic Allergic/Immunologic ED: Denies mouth swelling, tongue swelling or urticaria EXAM Physical Exam Narrative Exam Narrative: Well-appearing female sitting in the bed with lights on in the room. Const Vital Signs: 09/03/25 11:18 09/03/25 11:54 09/03/25 13:01 Temperature 98.6 F Temperature Source Oral Pulse Rate 77 98 Respiratory Rate 16 18 Blood Pressure 173/102 H 152/94 H Blood Pressure Mean 125 113 Pulse Ox 100 100 Oxygen Delivery Method Room Air Room Air 09/03/25 14:00 09/03/25 15:00 Temperature Temperature Source Pulse Rate 78 74 Respiratory Rate 18 18 Blood Pressure 157/91 H 137/90 H Blood Pressure Mean 113 105 Pulse Ox 99 98 Oxygen Delivery Method Room Air Room Air Positive well nourished and well developed General Appearance ED: well developed and NAD HEENT Reports normocephalic, head/scalp atraumatic and moist mucous membranes Eyes PERRL and EOMs intact bilaterally Eyes Narrative: No photophobia Neck no lymphadenopathy, supple and no JVD Neck Narrative: No meningeal signs. Moves her neck easily. General: Negative for tenderness Resp normal respiratory effort and clear to auscultation bilaterally Cardio regular rate, regular rhythm and no murmurs GI normal to inspection, nondistended, normoactive bowel sounds and non-tender Palpation: soft Back/Spine no CVA tenderness and normal ROM Extremity normal to inspection General Extremety ED: Negative for edema General Extremity: Negative for edema Neuro oriented x3, CN's II-XII intact bilaterally, no sensory deficits noted and gait normal Neuro Narrative: NIH 0 Sensorium / Orientation: alert Motor Exam: strength 5/5 throughout Psych mental status grossly normal Mood & Affect: Negative for depressed or tearful Skin no rashes or lesions noted and no wounds MDM MDM MDM Narrative Medical decision making narrative: Differential diagnosis includes but not limited to intracranial hemorrhage stroke meningitis acute coronary syndrome aortic dissection aneurysm myocarditis pericarditis Patient's white count slightly elevated 13.2 hemoglobin 12.3 platelet count of 508. 2 sets of cardiac enzymes are negative. Normal creatinine. My independent interpretation of the chest x-ray is no acute process. CT of the brain noncontrasted is negative. EKG demonstrates a normal sinus rhythm at a ventricular rate of [address] segments. Patient received IV fluids as well as Toradol Compazine and Benadryl. Patient's headache is significantly improved. I encouraged her to follow-up with her primary care doctor and possibly neurology to discuss her daily headaches possible treatments/evaluations. At this time I do not suspect acute coronary syndrome aortic dissection or aneurysm pulmonary embolism. Think the patient can be discharged home History & Record Review Discussion w/independent historian: Patient Additional record(s) reviewed:: Prior labs Lab Data Attestation: I reviewed the patient's lab results. Labs: Laboratory Results - last 24 hr 09/03/25 09/03/25 12:45 14:18 WBC 13.2 H RBC 4.29 Hgb 12.3 Hct 38.0 MCV 88.6 MCH 28.7 MCHC 32.4 RDW Std Deviation 48.3 H RDW Coeff of Fanny 14.9 H Plt Count 508 H MPV 10.6 Immature Gran % (Auto) 0.300 Neut % (Auto) 55.1 Lymph % (Auto) 31.8 Alcorn % (Auto) 9.4 Eos % (Auto) 2.4 Baso % (Auto) 1.0 Absolute Neuts (auto) 7.2 Absolute Lymphs (auto) 4.18 Nucleated RBC % 0 Sodium 137 Potassium 3.8 Chloride 100 Carbon Dioxide 26.9 Anion Gap 9 BUN 13 Creatinine 0.53 L Estim Creat Clear Calc 186.90 Est GFR (MDRD) Non-Af 120 BUN/Creatinine Ratio 24.7 H Glucose 77 Calcium 9.2 Troponin T High Sens < 6 Troponin T Hi Sens 2 Hr < 6 Radiography Diagnostic Testing: Clinical Impression(s) from Imaging Studies Brain CT 09/03/25 12:55 IMPRESSION: NORMAL NONCONTRAST HEAD CT. Reading Location: [facility] Chest X-Ray 09/03/25 13:00 IMPRESSION: Pulmonary venous congestion. Reading Location: [facility] EKG Initial EKG: Attestation: I personally reviewed and interpreted this EKG as follows: Comments: Normal sinus rhythm ventricular rate of 73 bpm Discharge Plan Triage Chief Complaint: Chest Pain Other Complaint: Headache ED Provider: Anirudh Garnett Dx/Rx/DC Orders Clinical Impression: Headache, Chest pain Instructions: Self-Care for Headaches, ED Chest Pain, Noncardiac Prescriptions: No Action citalopram 20 mg tablet 40 mg PO DAILY Patient Comments: take 1 tablet by mouth once daily omeprazole 40 mg capsule,delayed release(DR/EC) 40 mg PO DAILY Skyrizi 150 mg/mL pen injector subcut Patient Comments: [NO ORIGINAL SIG] methylprednisolone [Medrol (Michael)] 4 mg tablets,dose pack See Rx Instructions PO PER PKG DIR Qty: 21 0RF Rx Instructions: PO PER PKG DIR Primary Care Provider: Giovanni Lundberg Referrals: Giovanni Lundberg MD [Primary Care Provider, Family Practice] - As soon as possible Activity Restrictions/Additional Instructions: Hide recommend following up with neurology for your change in headache pattern. You may also discuss with your primary care doctor your headaches as well as your chest pain. Print Language: Pashto Disposition Disposition: Home, Self Care
[2025-09-03 15:28] VITALS: BP 149/85; PULSE 78; RESP 16; TEMP 36.8; O2SAT 99
== END 2025-09-03 15:29 | disposition home or self-care (01) ==
PROVIDERS: Emergency Provider Emergency Medicine; PCP Family Medicine; Visit Provider Emergency Medicine
DX: R51.9 Headache, unspecified (principal); R07.9 Chest pain, unspecified
CPT/HCPCS: 70450; 71045; 80048; 84484; 85025; 93005; 96361; 96374; 96375; 99285; A4216